=== PATIENT | male | born 1935 | race Caucasian/White ===

== ENCOUNTER 2016-04-19 17:50 | Inpatient (IN) | payer OTHER ==
[~2016-04-19] VITALS: Ht 175.3 cm; Wt 64.3 kg
--- NOTE | ~2016-04-19 | EKG ---
[place] [address] [address] [facility] [place] [address] ELECTROCARDIOGRAM REPORT Name: ALEIDA BACK Room #: 308-P ADM IN M.R.#: [id number] Admission: 04/19/16 Attend Phys: Gray Escalona Discharge: Date of : 37 Report #: [id number] THIS REPORT FOR: //name// [facility] ED Test Date: 2016-04-19 Test Time: 18:23:34 Pat Name: ALEIDA BACK Department: Room: [facility] Gender: Multimedia Coordinator: Yana ONOFRE : 1935 Requested By: Henok Ojeda Order Number: [id number] MD: Terrell Fam Measurements Intervals [place] Rate: 65 P: 9 GA: 150 QRS: -65 QRSD: 156 T: 137 QT: 452 QTc: 470 Interpretive Statements AV Sequental pacing No further analysis attempted due to paced rhythm Compared to ECG 03/23/2016 12:07:07 No significant changes Electronically Signed On 04-20-2016 8:25:26 STRING LASTER by Terrell Fam [email or web address] <ELECTRONICALLY SIGNED> By: Terrell Fam MD 04/20/16 08 22 22 Terrell Fam MD /HARRIET
--- NOTE | ~2016-04-19 | HC ---
[facility] [place] [address] CONSULTATION Name: ALEIDA BACK Room #: 308-P [facility] IN ..#: [id number] Admission: 04/19/16 Attend Phys: Gray Escalona Discharge: 04/24/16 Date of : 37 Report #: [id number] THIS REPORT FOR: //name// CC: Les Escalona DATE OF ADMISSION: 04/19/2016 DATE OF CONSULTATION: 04/20/2016 REASON FOR CONSULTATION: Acute kidney injury. HISTORY OF PRESENT ILLNESS: This 80-year-old male who was recently hospitalized at [facility] with weakness and falling in March of 2016. He returned home after a 4-day hospitalization. He attempts to live independently. The patient tells me that he grew increasingly weak at home at [facility] where he had gone for rehab. He presented to the Emergency Room where his creatinine was elevated to 4.3. He was clinically dehydrated. He received fluid volume resuscitation. I conferred on the phone through the night with the Emergency Room and the floor regarding his laboratory studies, which initially included a potassium value of 6.0. He was treated emergently with inhaled albuterol, glucose and insulin. PAST MEDICAL HISTORY: Remarkable for longstanding congestive heart failure and COPD. He has known ischemic cardiomyopathy. ALLERGIES: Include FUROSEMIDE. MEDICATIONS ON ADMISSION: Amlodipine, carvedilol, Zestril, Aldactone, hydralazine, Nitrostat, aspirin, and bumetanide. PAST SURGICAL HISTORY: Includes percutaneous cardiac intervention. He has a permanent pacemaker in place due to sick sinus syndrome. He underwent coronary artery bypass surgery approximately 30 years ago. He has undergone previous appendectomy and cataract extraction. PERSONAL AND SOCIAL HISTORY: The patient continued to smoke 1 pack of cigarettes until recently. He does not consume alcohol and has no history of substance abuse. REVIEW OF SYSTEMS: Is remarkable for profound weakness. He denies shortness of breath, productive cough, hemoptysis, chest pain, nausea, vomiting, diarrhea or constipation. PHYSICAL EXAMINATION: GENERAL: Reveals a debilitated elderly male who is obviously dehydrated, in [facility] [address] [place] [address] CONSULTATION Name: ALEIDA BACK Room #: 308-P [facility] IN .R.#: [id number] Admission: 04/19/16 Attend Phys: Gray Shoaib Yvonnealex Discharge: 04/24/16 Date of : 37 Report #: [id number] acute distress. VITAL SIGNS: Blood pressure 101/56, temperature 97, pulse 70, respirations 17. SKIN: Warm and dry. There is no evidence of cellulitis. There is no edema and skin turgor is very poor. Mucous membranes are dry. HEENT: The head is normocephalic and atraumatic. The sclerae are white and conjunctivae are not injected. Pharynx is benign. NECK: Supple. LUNGS: Aquino reveal scattered rhonchi without evidence of consolidation. There is good air movement bilaterally. CARDIOVASCULAR: Reveals a regular rate and rhythm without gross murmur or rub. ABDOMEN: Soft and nontender without palpable mass or organomegaly. NEUROLOGIC: Reveals the patient to be responsive and reasonably alert without evidence of focal neurologic deficit. LABORATORY STUDIES: Available at this time includes sodium 135, potassium 5.0, chloride 102, CO2 20, BUN 116, creatinine 3.5, values on admission included BUN 133, creatinine 4.3. White blood cell count 6600, hemoglobin 11.3, hematocrit 33.7. Urinalysis reveals clear yellow urine, positive for nitrites, moderate bacteria seen. ASSESSMENT: 1. Acute kidney injury secondary to dehydration. 2. Hyperkalemia, improved post-emergent treatment. 3. Possible urinary tract infection. 4. Chronic obstructive pulmonary disease. 5. Ischemic cardiomyopathy post coronary artery bypass surgery and subsequent percutaneous intervention. 6. Anemia, stable. PLAN: The patient is undergoing rehydration and is responding well to this thus far. We will continue to hydrate him vigorously with normal saline at 125 mL per hour. We will follow serial laboratory studies, I and O and daily weights. Please see orders. <ELECTRONICALLY SIGNED> By: Yves Linn MD 04/26/16 [phone] [id number] Yves Linn MD /nt
[~2016-04-19 17:50] MED LIST: ADALAT CC60 MG PO; ADALAT CC90 MG PO; ALBUTEROL2.5 MG/0.5 INH; ALDACTONE25 MG PO; ALDACTONE50 MG PO; ALEVE220 MG; ALEVE220 MG PO; ALTACE10 MG PO; ALTACE5 MG PO; AMLODIPINE BESYL5 M1 PO; APAP500 PO; ATORVASTATIN CA40 MG PO; BAYER CHEWABLE81 MG PO; BUMETANIDE 1 MG1 M1 PO; BUMETANIDE PO; BUMEX PO; CARVEDILOL12.5 MG PO; CARVEDILOL25 MG PO; CARVEDILOL6.25 MG PO; CENTRUM SILVER1 EAC4 PO; COREG12.5 MG PO; COREG25 MG PO; DEMADEX20 MG PO; FLOMAX0.4 MG PO; HYDRALAZINE 2525 MG PO; IMDUR 60 MG TAB60 M1 PO; IPRAT-ALBUT 0.5-3 ML IH; K-TAB ER20 MEQ PO; LASIX 40 MG TAB40 M2 PO; LEVAQUIN 500 M500 M2 PO; LIPITOR 20 MG T20 M1 PO; LISINOPRIL10 MG PO; LISINOPRIL20 MG PO; MUCINEX TA600 MG/TA2 PO; NICOTINE PATCH1 EAC1 TD; NICOTINE TRANSD14 M1 TRANSDERM; NICOTINE TRANSD21 M1; NICOTINE TRANSDE7 MG TD; NITROGLYCERIN0.4 MG SL; NITROGLYCERIN0.4 MG SUBLING; NORCO 5-325 TA1 EACH PO; NORVASC5 MG PO; PLAVIX 75 MG TA75 M1 PO; POTASSIUM20 PO; PREDNISONE 5 MG5 M1 PO; PREDNISONE10 MG PO; PREDNISONE50 MG PO; PROTONIX40 M4 PO; QUINU10 PD PO; RESTORIL15 MG PO; TOPROL XL25 MG PO; TYLENOL325 MG PO; VENTOLIN HFA 1818 GM INH; ZOCOR40 MG PO
[2016-04-19 17:51] VITALS: BP 126/84
[2016-04-19] MEDS ORDERED: LISINOPRIL20 MG PO (17:56)
[2016-04-19 18:18] LABS: ABSOLUTE NEUTROPHILS 5.3 thou/uL (1.4-8.2); BASOPHILS 0.9 % (0.0-2.0); EOSINOPHILS 3.5 % (0.0-3.0); HEMATOCRIT 39.3 % (42.0-52.0); HEMOGLOBIN 13.3 gm/dL (14.0-18.0); LYMPHOCYTES 24.5 % (24.0-44.0); MCHC 33.9 % (28.0-37.0); MCV 91.2 fL (80.0-100.0); MONOCYTES 6.6 % (1.0-8.0); PLATELET COUNT 164 thou/uL (150-400); POLYS 64.5 % (36.0-66.0); RBC 4.31 mil/uL (4.50-6.00); RDW 14.3 % (10.5-14.5); WBC 8.2 thou/uL (4.0-11.0)
[2016-04-19 18:20] LABS: MANUAL DIFF NO
[2016-04-19 18:27] LABS: CALCIUM 9.5 mg/dL (8.5-10.1); CREATININE 4.3 mg/dL (0.6-1.3)
[2016-04-19 18:33] LABS: ALBUMIN 3.9 g/dL (3.4-5.0); TOTAL BILIRUBIN 0.5 mg/dL (<0.1-1.0)
[2016-04-19 19:02] LABS: PHOSPHORUS 5.8 mg/dL (2.5-4.9)
[2016-04-19 20:09] LABS: URINE BILIRUBIN NEGATIVE (Negative); URINE BLOOD NEGATIVE (Negative); URINE COLOR YELLOW; URINE GLUCOSE-RANDOM* NEGATIVE (Negative); URINE KETONES NEGATIVE (Negative); URINE LEUKOCYTES-REFLEX 1+ (Negative); URINE PROTEIN (DIPSTICK) NEGATIVE (Negative); URINE UROBILINOGEN 0.2 E.U./dl (0.2-1.0)
[2016-04-19 20:30] VITALS: BP 156/79
[2016-04-19 20:31] LABS: CASTS None Seen /LPF (None Seen); CRYSTALS None Seen /LPF (None Seen); SQUAMOUS None Seen /LPF (0-3); URINE RBC 0-2 Rare /HPF (0-2); URINE WBC-REFLEX 0-5 Rare /HPF (0-5)
[2016-04-19 21:45] VITALS: BP 150/78
[2016-04-19] MEDS ORDERED: KLOR-CON M1010 MEQ PO (23:09)
[2016-04-19 23:12] LABS: CALCIUM 8.8 mg/dL (8.5-10.1); CREATININE 3.9 mg/dL (0.6-1.3); POTASSIUM 5.2 mmol/L (3.5-5.1)
[2016-04-19 23:45] VITALS: BP 101/56
[2016-04-20 03:56] VITALS: BP 155/74
[2016-04-20 05:33] LABS: HEMATOCRIT 33.7 % (42.0-52.0); MCH 30.7 pg (26.0-34.0); MCHC 33.5 % (28.0-37.0); MCV 91.7 fL (80.0-100.0); RBC 3.68 mil/uL (4.50-6.00); RDW 13.9 % (10.5-14.5); WBC 6.6 thou/uL (4.0-11.0)
[2016-04-20 05:37] LABS: HEMOGLOBIN 11.3 gm/dL (14.0-18.0)
[2016-04-20 05:46] LABS: ALBUMIN 3.2 g/dL (3.4-5.0); CALCIUM 8.6 mg/dL (8.5-10.1); CREATININE 3.5 mg/dL (0.6-1.3); TOTAL BILIRUBIN 0.4 mg/dL (<0.1-1.0); TOTAL PROTEIN 6.5 g/dL (6.4-8.2)
[2016-04-20 08:40] VITALS: BP 117/57
[2016-04-20 11:55] VITALS: BP 111/59
[2016-04-20 16:29] VITALS: BP 139/68
[2016-04-21 05:20] VITALS: BP 144/71
[2016-04-21 07:45] LABS: ABSOLUTE NEUTROPHILS 3.3 thou/uL (1.4-8.2); BASOPHILS 0.9 % (0.0-2.0); EOSINOPHILS 4.9 % (0.0-3.0); HEMATOCRIT 33.1 % (42.0-52.0); LYMPHOCYTES 27.1 % (24.0-44.0); MCH 30.8 pg (26.0-34.0); MCHC 33.3 % (28.0-37.0); MCV 92.5 fL (80.0-100.0); MONOCYTES 7.2 % (1.0-8.0); PLATELET COUNT 151 thou/uL (150-400); POLYS 59.9 % (36.0-66.0); RBC 3.58 mil/uL (4.50-6.00); WBC 5.6 thou/uL (4.0-11.0)
[2016-04-21 07:49] LABS: MANUAL DIFF NO
[2016-04-21 07:59] LABS: CALCIUM 8.7 mg/dL (8.5-10.1); PHOSPHORUS 3.3 mg/dL (2.5-4.9)
[2016-04-21 08:00] LABS: CREATININE 2.3 mg/dL (0.6-1.3)
[2016-04-21 08:50] VITALS: BP 119/61
[2016-04-21 12:34] VITALS: BP 138/70
[2016-04-21 16:38] VITALS: BP 166/75
[2016-04-21 19:27] VITALS: BP 156/81
[2016-04-22 03:28] VITALS: BP 163/96
[2016-04-22 07:42] VITALS: BP 157/73
[2016-04-22 12:00] VITALS: BP 131/70
[2016-04-22 16:00] VITALS: BP 141/71
[2016-04-22 20:45] VITALS: BP 161/74
[2016-04-23 04:50] VITALS: BP 140/66
[2016-04-23 07:28] LABS: ALBUMIN 2.9 g/dL (3.4-5.0); CALCIUM 8.4 mg/dL (8.5-10.1); CREATININE 1.6 mg/dL (0.6-1.3); PHOSPHORUS 2.5 mg/dL (2.5-4.9); POTASSIUM 4.6 mmol/L (3.5-5.1)
[2016-04-23 07:30] VITALS: BP 157/84
[2016-04-23 16:25] VITALS: BP 165/77
[2016-04-23 20:00] VITALS: BP 193/89
[2016-04-24 04:00] VITALS: BP 149/79
[2016-04-24 04:19] LABS: ALBUMIN 2.9 g/dL (3.4-5.0); CALCIUM 8.5 mg/dL (8.5-10.1); CREATININE 1.6 mg/dL (0.6-1.3); PHOSPHORUS 2.8 mg/dL (2.5-4.9); POTASSIUM 4.4 mmol/L (3.5-5.1)
[2016-04-24 07:55] VITALS: BP 145/74
[2016-04-24] MEDS ORDERED: TORSEMIDE5 MG PO (09:58)
[2016-04-24 11:36] VITALS: BP 118/60
[2016-05-27] MEDS ORDERED: FLOMAX0.4 MG PO (09:27)
[2016-05-27] MEDS ORDERED: IMDUR 60 MG TAB60 M1 PO (09:27)
== END 2016-04-24 18:15 | DRG 683 ==
LOC: ER 17:50 → EROBS 19:42 → 3N 19:42
PROVIDERS: Emergency Medicine; Internal Medicine Nephrology
DX: N17.0 Acute kidney failure with tubular necrosis (principal); I13.0 Hypertensive heart and chronic kidney disease with heart failure and stage 1 through stage 4 chronic kidney disease, or unspecified chronic kidney disease; N39.0 Urinary tract infection, site not specified; I50.22 Chronic systolic (congestive) heart failure; N18.4 Chronic kidney disease, stage 4 (severe); E78.00 Pure hypercholesterolemia, unspecified; J44.9 Chronic obstructive pulmonary disease, unspecified; E87.5 Hyperkalemia; D64.9 Anemia, unspecified; F17.210 Nicotine dependence, cigarettes, uncomplicated; I25.10 Atherosclerotic heart disease of native coronary artery without angina pectoris; I25.5 Ischemic cardiomyopathy; Z79.899 Other long term (current) drug therapy; Z79.82 Long term (current) use of aspirin; Z88.8 Allergy status to other drugs, medicaments and biological substances; I25.2 Old myocardial infarction; Z95.5 Presence of coronary angioplasty implant and graft; Z90.49 Acquired absence of other specified parts of digestive tract; Z98.49 Cataract extraction status, unspecified eye; Z95.0 Presence of cardiac pacemaker; Z87.11 Personal history of peptic ulcer disease; Z95.1 Presence of aortocoronary bypass graft
CPT/HCPCS: 10096

== ENCOUNTER 2016-12-28 07:56 | Inpatient (IN) | payer OTHER ==
[~2016-12-28] VITALS: Ht 175.3 cm; Wt 62.0 kg
--- NOTE | ~2016-12-28 | EKG ---
[facility] [place] [address] ELECTROCARDIOGRAM REPORT Name: ALEIDA BACK Room #: [facility].#: [id number] Admission: Attend Phys: Discharge: Date of : 37 Report #: [id number] THIS REPORT FOR: //name// [facility] ED Test Date: 2016-12-28 Test Time: 08:06:19 Pat Name: ALEIDA BACK Department: Room: Gender: M Enrollment Nurse: [facility] : 1935 Requested By: Rachid Espinosa Order Number: [id number] MD: Errol Wong Measurements Intervals [place] Rate: 70 P: 31 [place]: 44 QRS: -73 QRSD: 159 T: 122 QT: 465 QTc: 502 Interpretive Statements Ventricular-paced complexes No further analysis attempted due to paced rhythm Baseline wander in lead(s) V1 Compared to ECG 05/26/2016 03:18:59 Premature ventricular complexes are no longer present Electronically Signed On 12-28-2016 8:15:24 CDT by Errol Wong [email or web address] <ELECTRONICALLY SIGNED> By: Errol Wong MD, [facility] 12/28/16814 5 5 Errol Wong MD, [facility] /EPI
--- NOTE | ~2016-12-28 | S ---
[facility] [place] [address] SURGICAL PATH RPT PROCEDURE Name: ALEIDA BACK Room #: 313-P [facility] IN M.R.#: [id number] Admission: 12/28/16 Date of : 37 Discharge: 12/30/16 Report #: [id number] Path Case #: [id number] PATHOLOGY REPORT COLLECTION DATE: 12/29/2016 RECEIVED DATE: 12/30/2016 SUBMITTING PHYS: Dr. Min Yanez Jr. OTHER PHYS: Dr. 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 (See comment). (CLW:joanne; 01/02/2017) COMMENT: Properly controlled immunohistochemical stains are performed. Block A1: P63 diffusely and strongly reactive P16 diffusely and strongly reactive Public Health Administrator slides are co-reviewed with Dr. Black Krishnan. The case is also being sent for HPV analysis. The case is discussed with Dr. Min Yanez and Dr. Liyah Love on 01/03/2017 at approximately 11:30 AM. (CLW:joanne; 01/02/2017) PATHOLOGIST: Smitha Mann M.D. REPORT ELECTRONICALLY SIGNED BY: Smitha Mann M.D. DATE/TIME: 01/03/2017 22:04 * * * * * * * * * * * * GROSS PATHOLOGY: Received in formalin labeled "Oh Sanchez neck," are 5 distinct needle cores of lim soft tissue ranging from 0.2 to 1.8 cm in length, which are submitted entirely in cassette A1 through A3. (TSD; 12/30/2016) CLINICAL HISTORY: Hemoptysis, accel htn [facility] [address] [address] SURGICAL PATH RPT PROCEDURE Name: ALEIDA BACK Room #: 313-P DIS IN M.R.#: [id number] Admission: 12/28/16 Date of : 37 Discharge: 12/30/16 Report #: [id number] Path Case #: [id number] INITIAL CPT CODE(S): A; 25976, 27324, 68453, 82491(2), 45002 Professional services performed by [facility] at [address], [place] [address] Technical services performed by [facility] at [address] [place] [address], [facility] [address] [address]. [facility] [address] [place] [address] PHONE: [phone] DIRECTOR: Shaun Cuevas M.D. * * * END OF REPORT * * *
--- NOTE | ~2016-12-28 | HC ---
[facility] [place] [address] CONSULTATION Name: ALEIDA BACK Room #: 313-P [facility] IN .R.#: [id number] Admission: 12/28/16 Attend Phys: Robin Pepper MD Discharge: Date of : 37 Report #: [id number] THIS REPORT FOR: //name// CC: Robin Nolasco DATE OF SERVICE: 12/28/2016 PRIMARY CARE PHYSICIAN: Key Nolasco MD. REFERRING PHYSICIAN: Robin Pepper MD. REASON FOR REFERRAL: Hemoptysis. HISTORY OF PRESENT ILLNESS: The patient is an 81-year-old white male who presents to the emergency room with hemoptysis. A pulmonary consultation was requested. The patient is a fair historian. He is a bit confused. He states that he has a pacemaker placed in his neck area. The patient notes that he has been coughing up blood recently. He does not know how much, but is not more than a coffee cup, he thinks. He also states he has lost about 20-30 pounds over the last couple of months. He used to weigh 180 pounds. He currently weighs approximately 140 pounds. Imaging studies were performed in the ER. There appears to be a neck mass seen on a CT of the neck. PAST MEDICAL HISTORY: Notable for COPD, tobacco abuse smoking 1 pack per day for the last 60 years, coronary artery disease status post 6 stent placements in the past with past history of myocardial infarction, hypertension, ischemic cardiomyopathy with ejection fraction of 25% to 30%, cataract status post extraction, chronic kidney disease stage 3/4, chronic left bundle-branch block, and history of peptic ulcer disease. PAST SURGICAL HISTORY: Notable for cataract extraction, coronary bypass surgery about 30 years ago, and past history of rib fractures following a fall. ALLERGIES: None to medications. HOME MEDICATIONS: Include Andrews Aspirin, nitro, Zestril, antioxidants, and acetaminophen. FAMILY HISTORY: Notable for heart disease in the father who . Mother had heart disease. She has also . [facility] [address] [place] [address] CONSULTATION Name: ALEIDA BACK Room #: 313-P [facility] IN ..#: [id number] Admission: 12/28/16 Attend Phys: Robin Pepper MD Discharge: Date of : 37 Report #: [id number] SOCIAL HISTORY: The patient continues to smoke about a pack a day. He now lives with his nephew. 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 REVIEW OF SYSTEMS: As mentioned above, otherwise a 10-point system review negative. PHYSICAL EXAMINATION: GENERAL: He is awake, alert, in no apparent distress. VITAL SIGNS: Temperature is 97.7 degrees Fahrenheit, pulse is 61, respiratory rate is 20, blood pressure 153/84 mmHg, and saturation 98%. HEENT: Normocephalic and atraumatic. NECK: Supple. There is a large right submandibular mass. CHEST: Breath sounds are good bilaterally without any rales or wheezes. CARDIOVASCULAR: Normal S1, S2. There are no murmurs or gallop. There is no JVD. There is no carotid bruit. Pulses are 2+/4+ bilaterally. ABDOMEN: Soft and nontender. No organomegaly or masses felt. GENITOURINARY: Deferred. RECTAL: Deferred. EXTREMITIES: There is no edema, cyanosis, or clubbing. MUSCULOSKELETAL: Notable for moderate muscle atrophy. LABORATORY DATA: Chest x-ray is clear. CT of the head was unremarkable. CT chest angiogram was grossly unremarkable. No evidence of pulmonary embolus. CT of the neck shows a large right neck mass, possible soft issue mass involving the right oropharynx and hypopharynx. Electrolytes are normal except for creatinine of 1.3. Liver function test is grossly unremarkable. Hemoglobin 12.3, WBC 7500, and platelets are normal. Arterial blood gas revealed pH of 7.42, pCO2 of 37, and pO2 of 80, on room air. IMPRESSION: 1. Hemoptysis in an 81-year-old white male. His CT of the neck shows a large right-sided neck mass. Hemoptysis is likely related to oropharyngeal abnormality. I do not think hemoptysis is coming from the lung parenchyma. 2. Large right neck mass. ENT has been consulted. 3. Chronic obstructive pulmonary disease. 4. Coronary artery disease, ischemic cardiomyopathy, with a past history of myocardial infarction and coronary bypass surgery in the past with multiple stent placements. 5. Poor historian. 6. Recent weight loss. 7. Hypertension. 8. Hypocholesterolemia. 9. Chronic kidney disease stage 3. 10. Tobacco abuse. 11. Chronic left bundle-branch block. [facility] [address] [place] [address] CONSULTATION Name: ALEIDA BACK Room #: 313-P [facility] IN M.R.#: [id number] Admission: 12/28/16 Attend Phys: Robin Pepper MD Discharge: Date of : 37 Report #: [id number] 12. History of peptic ulcer disease in 2014. 13. History of fall with rib fractures in 03/2016. RECOMMENDATIONS: We will await findings of physician practice consultant. We will monitor hemoptysis for now. Otherwise, the patient is stable from a pulmonary standpoint. Gas exchange is adequate. We will continue bronchodilators for now. We will hold aspirin given his hemoptysis. Thank you for this consultation. By: [id number] KELVIN Massey /mark
[~2016-12-28 07:56] MED LIST changes: +KLOR-CON M1010 MEQ PO; +TORSEMIDE5 MG PO
[2016-12-28 08:16] LABS: ABSOLUTE NEUTROPHILS 5.2 thou/uL (1.4-8.2); BASOPHILS 1.1 % (0.0-2.0); HEMATOCRIT 36.6 % (42.0-52.0); HEMOGLOBIN 12.3 gm/dL (14.0-18.0); LYMPHOCYTES 21.4 % (24.0-44.0); MANUAL DIFF NO; MCHC 33.5 g/dL (28.0-37.0); MCV 92.4 fL (80.0-100.0); MONOCYTES 6.1 % (1.0-8.0); PLATELET COUNT 243 thou/uL (150-400); POLYS 69.4 % (36.0-66.0); RBC 3.96 mil/uL (4.50-6.00); RDW 14.3 % (10.5-14.5); WBC 7.5 thou/uL (4.0-11.0)
[2016-12-28] MEDS ORDERED: I-CAPS WITH LU1 EACH PO (08:20)
[2016-12-28] MEDS ORDERED: PAIN & FEVER325 MG PO (08:22)
[2016-12-28 08:24] LABS: ANION GAP 10 mmol/L (7-16); BUN 28 mg/dL (7-18); CHLORIDE 103 mmol/L (98-107); CO2 26 mmol/L (21-32); CREATININE 1.3 mg/dL (0.7-1.3); GLUCOSE 112 mg/dL (74-106); POTASSIUM 3.8 mmol/L (3.5-5.1); SODIUM 139 mmol/L (136-145)
[2016-12-28 08:31] LABS: APTT 28.7 Seconds (24.5-32.8); PROTIME 10.7 Seconds (9.3-11.4)
[2016-12-28 08:33] LABS: ALBUMIN 3.5 g/dL (3.4-5.0); ALKALINE PHOSPHATASE 104 U/L (46-116); SGOT 18 U/L (15-37); SGPT 15 U/L (30-65); TOTAL BILIRUBIN 0.5 mg/dL (<0.1-1.0); TOTAL PROTEIN 7.1 g/dL (6.4-8.2); TROPONIN-I < 0.04 ng/mL (<0.04-0.07)
[2016-12-28 10:56] VITALS: BP 166/79
[2016-12-28 12:02] LABS: ABG SAMPLE TYPE ARTERIAL; BE(vivo) 0.1 mmol/L (-2 to +3); HCO3 24.3 mmol/L (22.0-26.0); LACTATE 1.18 mmol/L (0.5-2.0); O2(CT) 17.1 mL/dL (15.0-23.0); O2Hb 94.8 % (92.0-98.0); PCO2 37.9 mmHg (35.0-45.0); PO2 80.3 mmHg (80.0-100.0); pH 7.424 (7.360-7.450); sO2 96.1 % (92.0-98.0); tCO2 25.4 mmol/L (24.0-30.0)
[2016-12-28 12:03] LABS: STICK SITE L.RADIAL
[2016-12-28 12:37] VITALS: BP 161/86
[2016-12-28 15:57] VITALS: BP 153/84
[2016-12-28 20:30] VITALS: BP 129/76
[2016-12-29] VITALS: BP 119/69
[2016-12-29 05:00] VITALS: BP 149/77
[2016-12-29 07:13] LABS: HEMATOCRIT 34.6 % (42.0-52.0); HEMOGLOBIN 11.5 gm/dL (14.0-18.0); MCH 30.9 pg (26.0-34.0); MCHC 33.3 g/dL (28.0-37.0); RBC 3.72 mil/uL (4.50-6.00); RDW 14.6 % (10.5-14.5); WBC 9.6 thou/uL (4.0-11.0)
[2016-12-29 07:30] LABS: CREATININE 1.6 mg/dL (0.7-1.3); POTASSIUM 4.2 mmol/L (3.5-5.1)
[2016-12-29 08:00] VITALS: BP 163/88
[2016-12-29 15:32] VITALS: BP 114/60
[2016-12-29 19:30] VITALS: BP 142/73
[2016-12-29 23:25] VITALS: BP 139/90
[2016-12-30 04:25] VITALS: BP 137/76
[2016-12-30 08:25] VITALS: BP 163/83
[2016-12-30 09:10] LABS: MCH 31.2 pg (26.0-34.0); MCHC 33.2 g/dL (28.0-37.0); MCV 94.1 fL (80.0-100.0); RBC 3.19 mil/uL (4.50-6.00); RDW 14.8 % (10.5-14.5); WBC 8.8 thou/uL (4.0-11.0)
[2016-12-30 09:19] LABS: CALCIUM 8.7 mg/dL (8.5-10.1); CREATININE 1.5 mg/dL (0.7-1.3); POTASSIUM 5.3 mmol/L (3.5-5.1)
== END 2016-12-30 17:20 | DRG 133 ==
LOC: ER 07:56 → 3N 10:40 → EROBS 10:40 → 3N 12:40
PROVIDERS: Emergency Medicine; Internal Medicine; Internal Medicine Pulmonary Disease
PROC: 0HB4XZX Excision of Neck Skin, External Approach, Diagnostic (ICD-10-PCS; principal; 2016-12-29)
PROC: 07B13ZX Excision of Right Neck Lymphatic, Percutaneous Approach, Diagnostic (ICD-10-PCS; 2016-12-30)
DX: C10.9 Malignant neoplasm of oropharynx, unspecified (principal); N18.4 Chronic kidney disease, stage 4 (severe); C79.89 Secondary malignant neoplasm of other specified sites; I13.0 Hypertensive heart and chronic kidney disease with heart failure and stage 1 through stage 4 chronic kidney disease, or unspecified chronic kidney disease; R04.2 Hemoptysis; I50.9 Heart failure, unspecified; J44.9 Chronic obstructive pulmonary disease, unspecified; I25.10 Atherosclerotic heart disease of native coronary artery without angina pectoris; E78.5 Hyperlipidemia, unspecified; Z96.89 Presence of other specified functional implants; I25.5 Ischemic cardiomyopathy; E78.00 Pure hypercholesterolemia, unspecified; I44.7 Left bundle-branch block, unspecified; N40.0 Benign prostatic hyperplasia without lower urinary tract symptoms; Z66 Do not resuscitate; F17.210 Nicotine dependence, cigarettes, uncomplicated; F03.90 Unspecified dementia, unspecified severity, without behavioral disturbance, psychotic disturbance, mood disturbance, and anxiety; R59.1 Generalized enlarged lymph nodes; Z89.021 Acquired absence of right finger(s); Z90.49 Acquired absence of other specified parts of digestive tract; Z98.49 Cataract extraction status, unspecified eye; Z79.82 Long term (current) use of aspirin; Z79.899 Other long term (current) drug therapy; Z95.1 Presence of aortocoronary bypass graft; Z95.5 Presence of coronary angioplasty implant and graft; I25.2 Old myocardial infarction; Z87.11 Personal history of peptic ulcer disease; Z88.8 Allergy status to other drugs, medicaments and biological substances; Z82.49 Family history of ischemic heart disease and other diseases of the circulatory system
CPT/HCPCS: 10096